=== PATIENT | male | born 1990 | race African-American/Black ===

== ENCOUNTER 2020-09-15 23:37 | Emergency (ER) | payer OTHER ==
[2020-09-15 23:43] VITALS: BP 112/73; PULSE 84; TEMP 98.3; BMI 24.3
[2020-09-15] MEDS ORDERED: IBUPROFEN 400 MG TABLET (FP) PO ONE (23:49)
[2020-09-16] MEDS ORDERED: IBUPROFEN 400 MG TABLET (FP) PO ONE (00:14)
== END 2020-09-16 01:25 | disposition home or self-care (01) ==
LOC: FER 23:37
DX: M79.605 Pain in left leg (principal)
CPT/HCPCS: 93971-TC; 99284-25

== ENCOUNTER 2021-02-26 18:40 | Emergency (ER) | payer OTHER ==
[2021-02-26 18:54] VITALS: BP 105/68; PULSE 80; TEMP 98.9; BMI 26.6
== END 2021-02-26 20:02 | disposition home or self-care (01) ==
LOC: FER 18:40
DX: F41.9 Anxiety disorder, unspecified (principal)
CPT/HCPCS: 99283-25

== ENCOUNTER 2021-04-29 14:54 | Emergency (ER) | payer OTHER ==
[2021-04-29 15:10] VITALS: BP 125/66; PULSE 90; TEMP 98.3; BMI 27.5
== END 2021-04-29 16:23 | disposition home or self-care (01) ==
LOC: FER 14:54
DX: S89.92XA Unspecified injury of left lower leg, initial encounter (principal); W00.0XXA Fall on same level due to ice and snow, initial encounter
CPT/HCPCS: 73560-TC-LT-FY; 73590-TC-LT-FY; 99284-25

== ENCOUNTER 2022-08-14 02:04 | Emergency (ER) | payer OTHER ==
[2022-08-14 02:14] VITALS: BP 124/76; BMI 29.5
[2022-08-14] MEDS ORDERED: ALBUTEROL SO4 2.5/IPRATROPIUM 0.5 INH SOL 3 ML VIAL.NEB. NEB ONE ×2 (02:24→02:29)
== END 2022-08-14 03:08 | disposition home or self-care (01) ==
LOC: FER 02:04
PROC: 3E0F7GC Introduction of Other Therapeutic Substance into Respiratory Tract, Via Natural or Artificial Opening (ICD-10-PCS; principal; 2022-08-14)
DX: R07.89 Other chest pain (principal); J45.998 Other asthma
CPT/HCPCS: 99283-25

== ENCOUNTER 2022-09-06 15:58 | Emergency (ER) | payer OTHER ==
[2022-09-06 16:12] VITALS: BP 107/69; PULSE 98; RESP 20; TEMP 97.8; BMI 31.8
[2022-09-06] MEDS ORDERED: ALBUTEROL SO4 0.083% IH SOL 2.5 MG/3 ML VIAL.NEB. NEB ONE ×3 (16:21→17:18)
[2022-09-06] MEDS ORDERED: ALBUTEROL SO4 2.5/IPRATROPIUM 0.5 INH SOL 3 ML VIAL.NEB. NEB ONE ×2 (16:26→17:39)
[2022-09-06] MEDS ORDERED: ALBUTEROL SO4 HFA INHALER IH ONE (17:08)
[2022-09-06] MEDS ORDERED: DEXAMETHASONE SOD PHOSPHATE 10 MG/1 ML VIAL IM ONE (17:35)
[2022-09-06] MEDS ORDERED: DEXAMETHASONE SOD PHOSPHATE/PF 10 MG/ML SDV ONE (17:39)
[2022-09-06] MEDS: ALBUTEROL SO4 2.5/IPRATROPIUM 0.5 INH SOL 3 ML VIAL.NEB. NEB SCH ×2 (17:50→18:05)
[2022-09-06] MEDS ORDERED: AZITHROMYCIN 250 MG TABLET PO ONE (18:14)
[2022-09-06] MEDS ORDERED: AZITHROMYCIN 500 MG TABLET ONE (18:15)
== END 2022-09-06 18:40 | disposition home or self-care (01) ==
LOC: FER 15:58
PROC: 3E023GC Introduction of Other Therapeutic Substance into Muscle, Percutaneous Approach (ICD-10-PCS; principal; 2022-09-06)
PROC: 3E0F7GC Introduction of Other Therapeutic Substance into Respiratory Tract, Via Natural or Artificial Opening (ICD-10-PCS; 2022-09-06)
PROC: 3E0F7GC Introduction of Other Therapeutic Substance into Respiratory Tract, Via Natural or Artificial Opening (ICD-10-PCS; 2022-09-06)
DX: R06.2 Wheezing (principal); R07.9 Chest pain, unspecified; J18.9 Pneumonia, unspecified organism; Z20.822 Contact with and (suspected) exposure to COVID-19
CPT/HCPCS: 0241U-QW; 71046-TC-FY; 99284-25; J1100

== ENCOUNTER 2022-10-08 00:51 | Emergency (ER) | payer OTHER ==
[2022-10-08 01:12] VITALS: BP 109/64; PULSE 73; RESP 16; TEMP 98.5; BMI 32.5
[2022-10-08] MEDS ORDERED: ALBUTEROL SO4 0.083% IH SOL 2.5 MG/3 ML VIAL.NEB. NEB ONE ×2 (01:12→01:13)
== END 2022-10-08 01:53 | disposition home or self-care (01) ==
LOC: FER 00:51
PROC: 3E0F7GC Introduction of Other Therapeutic Substance into Respiratory Tract, Via Natural or Artificial Opening (ICD-10-PCS; principal; 2022-10-08)
DX: R06.02 Shortness of breath (principal); R07.89 Other chest pain; J45.20 Mild intermittent asthma, uncomplicated; J98.01 Acute bronchospasm
CPT/HCPCS: 99283-25

== ENCOUNTER 2022-10-17 00:24 | Emergency (ER) | payer OTHER ==
[2022-10-17 00:30] VITALS: BP 111/74; PULSE 94; RESP 18; TEMP 97.9; BMI 32.5
[2022-10-17] MEDS ORDERED: ALBUTEROL SO4 2.5/IPRATROPIUM 0.5 INH SOL 3 ML VIAL.NEB. NEB ONE (00:44)
[2022-10-17] MEDS ORDERED: ALBUTEROL SO4 2.5/IPRATROPIUM 0.5 INH SOL 3 ML VIAL.NEB. NEB SCH (00:45)
== END 2022-10-17 01:38 | disposition home or self-care (01) ==
LOC: FER 00:24
PROC: 3E0F7GC Introduction of Other Therapeutic Substance into Respiratory Tract, Via Natural or Artificial Opening (ICD-10-PCS; principal; 2022-10-17)
DX: J45.21 Mild intermittent asthma with (acute) exacerbation (principal)
CPT/HCPCS: 99283-25

== ENCOUNTER 2022-10-28 17:28 | Emergency (ER) | payer OTHER ==
[2022-10-28] MEDS ORDERED: ALBUTEROL SO4 2.5/IPRATROPIUM 0.5 INH SOL 3 ML VIAL.NEB. NEB ONE (17:39)
[2022-10-28 17:47] VITALS: BP 141/71; PULSE 79; RESP 20; TEMP 98.3; BMI 24.3
== END 2022-10-28 18:14 | disposition home or self-care (01) ==
LOC: FER 17:28
PROC: 3E0F7GC Introduction of Other Therapeutic Substance into Respiratory Tract, Via Natural or Artificial Opening (ICD-10-PCS; principal; 2022-10-28)
DX: J30.1 Allergic rhinitis due to pollen (principal); J98.01 Acute bronchospasm; R06.2 Wheezing
CPT/HCPCS: 99283-25

== ENCOUNTER 2022-11-05 21:00 | Emergency (ER) | payer OTHER ==
[2022-11-05 21:27] VITALS: BP 124/78; PULSE 87; RESP 16; TEMP 99.8; BMI 23.6
[2022-11-05] MEDS ORDERED: predniSONE 20 MG TABLET (UD) PO ONE (21:37)
[2022-11-05] MEDS ORDERED: ALBUTEROL SO4 2.5/IPRATROPIUM 0.5 INH SOL 3 ML VIAL.NEB. NEB STA (21:40)
[2022-11-05] MEDS ORDERED: predniSONE 20 MG TABLET (UD) ONE (21:48)
[2022-11-05] MEDS ORDERED: ALBUTEROL SO4 2.5/IPRATROPIUM 0.5 INH SOL 3 ML VIAL.NEB. NEB ONE (21:49)
== END 2022-11-05 22:22 | disposition home or self-care (01) ==
LOC: FER 21:00
PROC: 3E0F7GC Introduction of Other Therapeutic Substance into Respiratory Tract, Via Natural or Artificial Opening (ICD-10-PCS; principal; 2022-11-05)
DX: J45.901 Unspecified asthma with (acute) exacerbation (principal); R06.9 Unspecified abnormalities of breathing
CPT/HCPCS: 99283-25

== ENCOUNTER 2022-11-19 17:43 | Emergency (ER) | payer OTHER ==
[2022-11-19 18:10] VITALS: BP 105/71; PULSE 86; RESP 18; TEMP 98.4; BMI 23.6
[2022-11-19] MEDS ORDERED: ALBUTEROL SO4 HFA INHALER IH ONE ×2 (20:02→20:03)
== END 2022-11-19 20:09 | disposition home or self-care (01) ==
LOC: FER 17:43
PROC: 3E0F7GC Introduction of Other Therapeutic Substance into Respiratory Tract, Via Natural or Artificial Opening (ICD-10-PCS; principal; 2022-11-19)
DX: R07.89 Other chest pain (principal); R06.02 Shortness of breath
CPT/HCPCS: 93005; 99283-25

== ENCOUNTER → 2022-12-16 | Emergency (ER) | payer OTHER ==
[~2022-12-16] MED LIST: ALBUTEROL SO4 HFA INHALER IH ONE
[2022-12-16 14:08] VITALS: BP 113/70; PULSE 68; RESP 16; TEMP 98.8; BMI 31.1
== END | disposition home or self-care (01) ==
LOC: FER 13:53
PROC: 3E0F7GC Introduction of Other Therapeutic Substance into Respiratory Tract, Via Natural or Artificial Opening (ICD-10-PCS; principal; 2022-12-16)
DX: R07.89 Other chest pain (principal); T78.40XA Allergy, unspecified, initial encounter
CPT/HCPCS: 99283-25

== ENCOUNTER 2023-01-19 22:38 | Emergency (ER) | payer OTHER ==
[2023-01-19 22:43] VITALS: BP 117/81; PULSE 72; RESP 18; TEMP 97.8; BMI 32.1
[2023-01-19] MEDS ORDERED: predniSONE 20 MG TABLET (UD) PO ONE (22:49)
[2023-01-19] MEDS ORDERED: ALBUTEROL SO4 0.083% IH SOL 2.5 MG/3 ML VIAL.NEB. NEB ONE ×2 (22:49→22:51)
[2023-01-19] MEDS ORDERED: predniSONE 20 MG TABLET (UD) ONE (22:51)
[2023-01-19] MEDS ORDERED: ALBUTEROL SO4 HFA INHALER IH ONE ×2 (23:15→23:16)
== END 2023-01-19 23:17 | disposition home or self-care (01) ==
LOC: FER 22:38
PROC: 3E0F7GC Introduction of Other Therapeutic Substance into Respiratory Tract, Via Natural or Artificial Opening (ICD-10-PCS; principal; 2023-01-19)
PROC: 3E0F7GC Introduction of Other Therapeutic Substance into Respiratory Tract, Via Natural or Artificial Opening (ICD-10-PCS; 2023-01-19)
DX: J30.2 Other seasonal allergic rhinitis (principal); R06.2 Wheezing; R06.02 Shortness of breath
CPT/HCPCS: 99284-25